=== PATIENT | male | born 1975 | race Caucasian/White ===

== ENCOUNTER 2019-01-18 14:58 | Emergency (ER) | payer SELFPAY ==
[2019-01-18] MEDS ORDERED: NA CHLORIDE 0.9% 1,000 ML ONE (16:42)
[2019-01-18 16:53] LABS: Absolute Lymphocytes (CBC) 3.6 K/uL (0.7-4.9); Absolute Monocytes 0.6 K/uL (0.1-1.3); Absolute Neutrophil 5.8 K/uL (1.8-8.0); Basophils % 0.7 % (0-1.3); Eosinophils % 1.2 % (0-4.4); Hematocrit 44.1 % (39.6-49.0); Monocytes % 6.2 % (3.3-12.3); RBC Red Blood Cell Count 5.22 M/uL (4.33-5.43)
[2019-01-18 17:09] LABS: Urine Bacteria NONE SEEN /HPF (NONE SEEN)
--- NOTE | 2019-01-18 17:09 | RAD REPORT ---
EXAM DESCRIPTION: CT - Stone Protocol - 01/18/2019 4:54 pm CLINICAL HISTORY: Abdominal pain. Right flank pain/hematuria COMPARISON: None. TECHNIQUE: Computed axial tomography of the abdomen pelvis was obtained without oral or IV contrast. Lack of IV and oral contrast limits evaluation of solid organs, bowel, and vessels. Coronal reformat levi images were obtained and reviewed. All CT scans are performed using dose optimization technique as appropriate and may include automated exposure control or mA/KV adjustment according to patient size. FINDINGS: 16 millimeter low-density lesion right kidney appeared 9 millimeter calculus right renal p maggie. Mild right hydronephrosis. A 1 millimeter calculus right ureteral vesicle junction. Left renal calculus is not seen Small umbilical hernia contains fat. Small inguinal hernias contain fat Fatty liver Spleen, pancreas and adrenals appear grossly normal There is no evidence of diverticulitis. IMPRESSION: 1 millimeter calculus right ureterovesical junction resulting in mild right hydronephros is
[2019-01-18 17:10] LABS: Calcium Oxalate Crystals- Ur FEW (NONE SEEN); Urine Culture Reflex Order NOT NEEDED
[2019-01-18 17:13] LABS: BUN Blood Urea Nitrogen 16 mg/dL (7-18); Bicarbonate 28 mmol/L (21-32); Creatine Phosphokinase 712 U/L (39-308); Glucose Level 150 mg/dL (74-106); Sodium Level 137 mmol/L (136-145)
--- NOTE | 2019-01-18 17:32 | ER ---
Nurse's Notes [facility] Name: Rajeev Onofre Age: 43 yrs Sex: Male : 1975 Arrival Date: 01/18/2019 Time: 15:01 Bed 25 Private MD: Diagnosis: Calculus of kidney and ureter;Rhabdomyolysis Presentation: 01/18 15:01 Presenting complaint: Patient states: i have peeing a lot of blood since Friday night, hj denies pain, reports back pain; denies fever and chills;. Transition of care: patient was not received from another setting of care. Onset of symptoms was January 18, 2019. Risk Assessment: Do you want to hurt yourself or someone else? Patient reports no desire to harm self or others. Initial Sepsis Screen: Does the patient meet any 2 criteria? No. Patient's initial sepsis screen is negative. Does the patient have a suspected source of infection? No. Patient's initial sepsis screen is negative. Care prior to arrival: None. 15:01 Method Of Arrival: Ambulatory 15:01 Acuity: BHANU 3 hj Historical: - Allergies: 15:05 No Known Allergies; hj - Home Meds: 15:05 None [Active]; hj - PMHx: 15:05 None; hj - PSHx: 15:05 Appendectomy; hj - Immunization history:: Adult Immunizations up to date. - Social history:: Smoking status: Patient/guardian denies using tobacco. - Ebola Screening: : Patient negative for fever greater than or equal to 101.5 degrees Fahrenheit, and additional compatible Ebola Virus Disease symptoms Patient denies exposure to infectious person Patient denies travel to an Ebola-affected area in the 21 days before illness onset. Screenin:34 Abuse screen: Denies threats or abuse. Denies injuries from another. Nutritional ca1 screening: No deficits noted. Tuberculosis screening: No symptoms or risk factors identified. Fall Risk None identified. Assessment: 16:34 General: Appears in no apparent distress. comfortable, Behavior is calm, cooperative, ca1 appropriate for age. Pain: Complains of pain in right low back Pain does not radiate. Pain currently is 7 out of 10 on a pain scale. Quality of pain is described as sharp, Pain began 2-3 days ago. Is intermittent. Neuro: Level of Consciousness is awake, alert, obeys commands, Oriented to person, place, time, situation. Cardiovascular: Heart tones S1 S2 present Capillary refill < 3 seconds Patient's skin is warm and dry. Respiratory: Airway is patent Respiratory effort is even, unlabored, Respiratory pattern is regular, symmetrical, Breath sounds are clear bilaterally. GI: Abdomen is round non-distended, Bowel sounds present X 4 quads. Abd is soft and non tender X 4 quads. : Reports blood with urine since Friday or Friday. EENT: No deficits noted. No signs and/or symptoms were reported regarding the EENT system. Derm: Skin is intact, is healthy with good turgor, Skin is pink, warm \T\ dry. Musculoskeletal: Circulation, motion, and sensation intact. Capillary refill < 3 seconds. 17:32 Reassessment: Patient appears in no apparent distress at this time. Patient and/or ca1 family updated on plan of care and expected duration. Pain level reassessed. Patient is alert, oriented x 3, equal unlabored respirations, skin warm/dry/pink. 18:14 Reassessment: Patient appears in no apparent distress at this time. Patient is alert, ca1 oriented x 3, equal unlabored respirations, skin warm/dry/pink. Vital Signs: 15:05 BP 135 / 68; Pulse 83; Resp 18; Temp 98.2(TE); Pulse Ox 96% on R/A; Weight 122.47 kg; hj Height 5 ft. 11 in. (180.34 cm); Pain 5/10; 16:41 BP 126 / 81; Pulse 73; Resp 17 S; Pulse Ox 94% on R/A; ca1 17:32 BP 129 / 76; Pulse 74; Resp 18 S; Temp 98.2(O); Pulse Ox 98% on R/A; ca1 18:14 BP 131 / 79; Pulse 75; Resp 18 S; Temp 98.1(O); Pulse Ox 98% on R/A; ca1 15:05 Body Mass Index 37.66 (122.47 kg, 180.34 cm) ED Course: 15:01 Patient arrived in ED. mr 15:04 Triage completed. hj 15:06 Arm band placed on right wrist. hj 16:07 Rita Olvera FNP-C [facility]. kb 16:07 Dontae Rueda MD is Attending Physician. kb 16:10 Urine collected: clean catch specimen, clear. 3 16:14 Almita Salcido, RN is Primary Nurse. ca1 16:33 No provider procedures requiring assistance completed. Inserted saline lock: 20 gauge ca1 in left antecubital area, using aseptic technique. Blood collected. 16:34 Patient has correct armband on for positive identification. Placed in gown. Bed in low ca1 position. Call light in reach. Side rails up X 1. Pulse ox on. NIBP on. Warm blanket given. 18:29 IV discontinued, intact, bleeding controlled, No redness/swelling at site. Pressure ca1 dressing applied. Administered Medications: 16:33 Drug: NS 0.9% 1000 ml Route: IV; Rate: 1000 ml; Site: left antecubital; ca1 18:13 Follow up: Response: No adverse reaction; IV Status: Completed infusion ca1 18:13 Drug: TORadol 30 mg Route: IVP; Site: left antecubital; ca1 18:29 Follow up: Response: No adverse reaction; Pain is decreased ca1 18:13 Drug: Flomax 0.4 mg Route: PO; ca1 18:29 Follow up: Response: No adverse reaction; Pain is decreased ca1 Outcome: 17:31 Discharge ordered by MD. kb 18:29 Discharged to home ambulatory. ca1 18:29 Condition: stable 18:29 Discharge instructions given to patient, Instructed on discharge instructions, follow up and referral plans. medication usage, Demonstrated understanding of instructions, follow-up care, medications, Prescriptions given X 4. 18:30 Patient left the ED. ca1 Signatures: Rita Olvera FNP-C FNP-Lovely JamesHanny Henry, RN RN hj Herrera, Deanna 3 Almita Salcido, RN RN ca1 Corrections: (The following items were deleted from the chart) 15:06 15:05 Pulse 83bpm; Resp 18bpm; Pulse Ox 96% RA; Temp 98.2F Temporal; 122.47 kg; Height hj 5 ft. 11 in.; BMI: 37.6; Pain 5/10; hj
--- NOTE | 2019-01-18 17:32 | EDPHYS ---
Physician Documentation [facility] Name: Rajeev Onofre Age: 43 yrs Sex: Male : 1975 Arrival Date: 01/18/2019 Time: 15:01 Bed 25 Private MD: ED Physician Dontae Rueda HPI: 01/18 17:03 This 43 yrs old Male presents to ER via Ambulatory with complaints of Urinary kb Problem, Vomiting. 17:03 The patient complains of pain in the right flank. The pain does not radiate. Onset: The kb symptoms/episode began/occurred 3 day(s) ago. Modifying factors: The symptoms are alleviated by nothing. the symptoms are aggravated by palpation/percussion. Associated signs and symptoms: Pertinent positives: hematuria, nausea, muscle cramps, Pertinent negatives: diarrhea, dizziness, dysuria, fever, urinary frequency, headache, pain radiating to the lower extremities, vomiting. Severity of pain: At its worst the pain was mild moderate in the emergency department the pain is unchanged. The patient has not experienced similar symptoms in the past. The patient has not recently seen a physician. Pt reports he had blood in his urine all weekend. States it is cleared up now, but his job wanted him to come get checked because he was still having flank pain. States he was working in the heat all day Friday until 3am on Friday and was having muscle cramps as well. Historical: - Allergies: 15:05 No Known Allergies; hj - Home Meds: 15:05 None [Active]; hj - PMHx: 15:05 None; hj - PSHx: 15:05 Appendectomy; hj - Immunization history:: Adult Immunizations up to date. - Social history:: Smoking status: Patient/guardian denies using tobacco. - Ebola Screening: : Patient negative for fever greater than or equal to 101.5 degrees Fahrenheit, and additional compatible Ebola Virus Disease symptoms Patient denies exposure to infectious person Patient denies travel to an Ebola-affected area in the 21 days before illness onset. ROS: 17:02 Constitutional: Negative for fever, chills, and weight loss, Cardiovascular: Negative kb for chest pain, palpitations, and edema, Respiratory: Negative for shortness of breath, cough, wheezing, and pleuritic chest pain, Abdomen/GI: Negative for abdominal pain, nausea, vomiting, diarrhea, and constipation, MS/Extremity: Negative for injury and deformity, Skin: Negative for injury, rash, and discoloration, Neuro: Negative for headache, weakness, numbness, tingling, and seizure. 17:02 : Positive for flank pain, hematuria. Exam: 17:02 Constitutional: This is a well developed, well nourished patient who is awake, alert, kb and in no acute distress. Head/Face: Normocephalic, atraumatic. ENT: Nares patent. No nasal discharge, no septal abnormalities noted. Tympanic membranes are normal and external auditory canals are clear. Oropharynx with no redness, swelling, or masses, exudates, or evidence of obstruction, uvula midline. Mucous membranes moist. Neck: Trachea midline, no thyromegaly or masses palpated, and no cervical lymphadenopathy. Supple, full range of motion without nuchal rigidity, or vertebral point tenderness. No Meningismus. Chest/axilla: Normal chest wall appearance and motion. Nontender with no deformity. No lesions are appreciated. Cardiovascular: Regular rate and rhythm with a normal S1 and S2. No gallops, murmurs, or rubs. Normal PMI, no JVD. No pulse deficits. Respiratory: Lungs have equal breath sounds bilaterally, clear to auscultation and percussion. No rales, rhonchi or wheezes noted. No increased work of breathing, no retractions or nasal flaring. Abdomen/GI: Soft, non-tender, with normal bowel sounds. No distension or tympany. No guarding or rebound. No evidence of tenderness throughout. Skin: Warm, dry with normal turgor. Normal color with no rashes, no lesions, and no evidence of cellulitis. MS/ Extremity: Pulses equal, no cyanosis. Neurovascular intact. Full, normal range of motion. Neuro: Awake and alert, GCS 15, oriented to person, place, time, and situation. Cranial nerves II-XII grossly intact. Motor strength 5/5 in all extremities. Sensory grossly intact. Cerebellar exam normal. Normal gait. 17:02 Back: CVA tenderness, that is mild, is noted on the right. Vital Signs: 15:05 BP 135 / 68; Pulse 83; Resp 18; Temp 98.2(TE); Pulse Ox 96% on R/A; Weight 122.47 kg; hj Height 5 ft. 11 in. (180.34 cm); Pain 5/10; 16:41 BP 126 / 81; Pulse 73; Resp 17 S; Pulse Ox 94% on R/A; ca1 17:32 BP 129 / 76; Pulse 74; Resp 18 S; Temp 98.2(O); Pulse Ox 98% on R/A; ca1 18:14 BP 131 / 79; Pulse 75; Resp 18 S; Temp 98.1(O); Pulse Ox 98% on R/A; ca1 15:05 Body Mass Index 37.66 (122.47 kg, 180.34 cm) hj MDM: 16:07 Patient medically screened. kb 16:59 Data reviewed: vital signs, nurses notes. Data interpreted: Pulse oximetry: on room air kb is 94 %. Interpretation: acceptable. 17:30 Counseling: I had a detailed discussion with the patient and/or guardian regarding: the kb historical points, exam findings, and any diagnostic results supporting the discharge/admit diagnosis, lab results, radiology results, the need for outpatient follow up, a urologist, to return to the emergency department if symptoms worsen or persist or if there are any questions or concerns that arise at home. 01/18 16:44 Order name: Urine Dipstick--Ancillary (enter results) bd 01/18 17:04 Order name: CBC with Automated Diff; Complete Time: 17:05 EDMS 01/18 17:12 Order name: Urine Microscopic Only; Complete Time: 17:11 EDMS 01/18 17:12 Order name: CT; Complete Time: 17:11 EDIA 01/18 17:15 Order name: Basic Metabolic Panel; Complete Time: 17:19 EDMS 01/18 17:15 Order name: Creatine Phosphokinase; Complete Time: 17:19 EDMS 01/18 15:09 Order name: Urine Dipstick-Ancillary (obtain specimen); Complete Time: 16:26 hj 01/18 16:14 Order name: IV Saline Lock; Complete Time: 16:34 kb 01/18 16:14 Order name: Labs collected and sent; Complete Time: 16:34 kb Administered Medications: 16:33 Drug: NS 0.9% 1000 ml Route: IV; Rate: 1000 ml; Site: left antecubital; ca1 18:13 Follow up: Response: No adverse reaction; IV Status: Completed infusion ca1 18:13 Drug: TORadol 30 mg Route: IVP; Site: left antecubital; ca1 18:29 Follow up: Response: No adverse reaction; Pain is decreased ca1 18:13 Drug: Flomax 0.4 mg Route: PO; ca1 18:29 Follow up: Response: No adverse reaction; Pain is decreased ca1 Disposition: 01/18/19 17:31 Discharged to Home. Impression: Calculus of kidney and ureter, Rhabdomyolysis. - Condition is Stable. - Discharge Instructions: Rhabdomyolysis, Kidney Stones, [id number], Dietary Guidelines to Help Prevent Kidney Stones. - Prescriptions for Zofran 4 mg Oral Tablet - take 1 tablet by ORAL route every 6 hours As needed; 20 tablet. Flomax 0.4 mg Oral Capsule, Sust. Release 24 hr - take 1 capsule by ORAL route once daily 1/2 hour following the same meal each day; 10 capsule. Diclofenac Sodium 75 mg Oral Tablet, Delayed Release (E.C.) - take 1 tablet by ORAL route 2 times per day As needed; 30 tablet. Macrobid 100 mg Oral Capsule - take 1 capsule by ORAL route every 12 hours for 7 days; 14 capsule. - Medication Reconciliation Form, Thank You Letter, Antibiotic Education, Prescription Opioid Use form. - Follow up: Emergency Department; When: As needed; Reason: Worsening of condition. Follow up: Private Physician; When: 2 - 3 days; Reason: Recheck today's complaints, Continuance of care, Re-evaluation by your physician. Signatures: Dispatcher [employer] Rita Velez, DURAN-Gordy GARCIAP-Tigre Leija RN RN Almita Salcido RN RN ca1 Corrections: (The following items were deleted from the chart) 18:30 17:31 01/18/2019 17:31 Discharged to Home. Impression: Calculus of kidney and ureter; ca1 Rhabdomyolysis. Condition is Stable. Forms are Medication Reconciliation Form, Thank You Letter, Antibiotic Education, Prescription Opioid Use. Follow up: Emergency Department; When: As needed; Reason: Worsening of condition. Follow up: Private Physician; When: 2 - 3 days; Reason: Recheck today's complaints, Continuance of care, Re-evaluation by your physician. kb
[2019-01-18] MEDS ORDERED: TAMSULOSIN 0.4 MG SR CAP ONE (18:25)
[2019-01-18] MEDS ORDERED: KETOROLAC 30 MG/ML INJ ONE (18:25)
[2019-01-19 05:34] LABS: Urine Blood 1+ (NEG); Urine Glucose 2+ (NEG); Urine Protein 1+ (NEG); Urine Specific Gravity 1.025 (1.005-1.030); Urine pH 5.5 (5.0-7.0)
== END 2019-01-18 18:30 | disposition home or self-care (01) ==
LOC: ER 14:58
DX: N20.2 Calculus of kidney with calculus of ureter (principal); M62.82 Rhabdomyolysis
CPT/HCPCS: 36415; 74176; 76377; 80048; 81003; 81015; 82550; 85025; 87086; 87088; 96361; 96374; 99284; J7030